=== PATIENT | female | born 1995 | race Caucasian/White ===

== ENCOUNTER 2016-05-21 04:35 | Emergency (ER) | payer BC, OTHER ==
[~2016-05-21] VITALS: Ht 172.7 cm; Wt 77.5 kg
[~2016-05-21 04:35] MED LIST: FEXO1TAB46 PO
[2016-05-21 04:40] VITALS: O2SAT 97; Ht 172.7 cm; Wt 77.5 kg
[2016-05-21 06:14] VITALS: TEMP 36.7; O2SAT 99
[2016-05-21] MEDS ORDERED: IBUPROFEN 600 MG TAB PO STA (06:45)
[2016-05-21] MEDS ORDERED: IBUPROFEN 200 MG TAB ONE (06:50)
[2016-05-21] MEDS ORDERED: CEFTRIAXONE SOD 350MG/ML 1 GM VIAL IM STA (08:47)
[2016-05-21] MEDS ORDERED: AZITHROMYCIN 250 MG TAB PO STA (08:47)
[2016-05-21] MEDS ORDERED: LEVONORGESTREL (EMERGENCY OC) 1.5 MG TAB PO ONE (09:00)
[2016-05-21] MEDS ORDERED: ONDANSETRON HOME PACK 4MG OD TAB PO ONE (09:00)
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
[2016-05-21 10:27] VITALS: BP 102/67; PULSE 115
== END 2016-05-21 09:50 | disposition home or self-care (01) ==
LOC: C.EDB 04:36
DX: Z04.41 Encounter for examination and observation following alleged adult rape (principal); J45.909 Unspecified asthma, uncomplicated; Z98.890 Other specified postprocedural states